=== PATIENT | female | born 1990 | race Caucasian/White ===

== ENCOUNTER 2016-11-14 16:35 | Emergency (ER) | payer OTHER, MEDICAID ==
[~2016-11-14] VITALS: Ht 154.9 cm; Wt 52.0 kg
[~2016-11-14 16:35] MED LIST: CYCL1PAK PO; ENDO5TAB6 PO; INDO50CA PO; PERC5TAB12 PO; PROM25TA5 PO; ZOFR4TAB3 SL
[2016-11-14 16:37] VITALS: BP 134/86; PULSE 88; RESP 20; TEMP 98.6; O2SAT 100
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
[2016-11-14 20:22] VITALS: PULSE 69; RESP 22; O2SAT 100
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
== END 2016-11-14 21:09 | disposition home or self-care (01) ==
LOC: NEPD 16:35
DX: O9A.211 Injury, poisoning and certain other consequences of external causes complicating pregnancy, first trimester (principal); S16.1XXA Strain of muscle, fascia and tendon at neck level, initial encounter; S60.312A Abrasion of left thumb, initial encounter; O26.891 Other specified pregnancy related conditions, first trimester; R51 Headache; Z3A.12 12 weeks gestation of pregnancy; V43.52XA Car driver injured in collision with other type car in traffic accident, initial encounter
CPT/HCPCS: 99282

== ENCOUNTER 2016-12-22 16:29 | Emergency (ER) | payer BC, OTHER ==
--- NOTE | 2016-12-22 18:20 | PD ---
HPI Chief Complaint Abdominal pain Date Seen: Dec 22, 2016 Time Seen: 18:15 Travel History International Travel<30 Days: No Contact w/Intl Traveler<30Days: No Known Affected Area: No History of Present Illness HPI 26-year-old who is at 17-18 weeks gestation comes in complaining of abdominal pain. She describes the pain as being sharp in character that started at 3 PM and lasted until about 4 PM. The pain resolved and now she feels just a dull achy sensation in her lower pelvis. She denies nausea vomiting fever or vaginal bleeding. Patient states that it feels better when she lies down but rates the pain as being very minimal male. She denies any complications. Patient has had a previous section and she is planning on a repeat due to hip complications necessitating major surgery. Para: 1 : 2 History Past Medical History Narrative Medical Polio ITP previous Left hip surgery Obstetric History Obstetric History section Family History Family History: Negative Social History Alcohol Use: No Tobacco Use: No Substance Abuse: No Allergies-Medications (Allergen,Severity, Reaction): Coded Allergies: codeine (Unverified Allergy, Severe, 12/20/16) Home Meds Active Scripts Oxycodone-Acetaminophen 5-325 mg (Percocet 5-325 mg)Oxycodone 5/325 Acetaminophen Tab1 Tab PO Q6H PRN (PAIN) #20 TAB Prov:Rolo Little MD 03/23/15 Ondansetron (Zofran ODT)4 Mg Tab4 Mg SL TID #10 TAB FOR NAUSEA/VOMITING Prov:Rolo Little MD 03/23/15 Reported Medications Oxycodone W/ Acetaminophen (Endocet)5 Mg/325 Mg Tab1 Tab PO Q6H PRN (PAIN) 03/23/15 Wrjoaohtyjnfvtu-Mejpdwngc-Mwxe (Cyclobenzaprinepax 10 & 0.0375-5 mg & %)10 Mg Tab5 Mg PO BID 03/23/15 Promethazine 25 mg (Phenergan 25 mg)25 Mg Tab25 Mg PO 03/23/15 Indomethacin 50 Mg Cap50 Mg PO 03/23/15 Review of Systems Except as stated in HPI: all other systems reviewed are Neg Physical Exam Narrative GENERAL: Well-nourished, well-developed patient. SKIN: Warm and dry. HEAD: Normocephalic and atraumatic. EYES: No scleral icterus. No injection or drainage. ENT: No nasal drainage noted. Mucous membranes pink. Airway patent. NECK: Supple, trachea midline. No JVD. CARDIOVASCULAR: Regular rate and rhythm without murmurs, gallops, or rubs. RESPIRATORY: Breath sounds equal bilaterally. No accessory muscle use. BREASTS: Bilateral exam showed no masses , no retractions, no nipple discharge. ABDOMEN/GI: Abdomen soft, non-tender, bowel sounds present, no rebound, no guarding Gravid to [-16] weeks size Fundal Height: [-] GENITOURINARY: External Genitalia: intact and normal in appearance BUS glands: [-Normal] Cervix: [Posterior-] Dilatation: [-Closed] Effacement: [-] Long Station: [-] High Presentation: [-] Membranes: [intact or ruptured] intact Uterine Contractions: [-] FHT's: 152 Category: [-] Baseline: [-] Reactive: [-] Variability: [-] Decels: [-] EXTREMITIES: No cyanosis or edema. BACK: Nontender without obvious deformity. No CVA tenderness. NEUROLOGICAL: Awake and alert. Motor and sensory grossly within normal limits. Five out of 5 muscle strength in all muscle groups. Normal speech. Data Data Vital Signs Reviewed: Yes [facility] Medical Record Reviewed: Yes Plan 26-year-old at 17-18 weeks gestation with a history of abdominal pain earlier this afternoon now this is mostly resolved Abdominal exam is benign with no pain with palpation No signs of premature cervical dilation with a normal pelvic examination and no vaginal bleeding [employer] today with adequate hydration and follow-up to her emergency technician as scheduled Diagnosis Diagnosis: Primary Impression: 17 weeks gestation of Additional Impressions: Abdominal pain affecting , antepartum History of poliomyelitis Previous delivery affecting , antepartum Disposition: DISCHARGE HOME Lorena Chapman MD Dec 22, 2016 18:20
== END 2016-12-22 18:37 | disposition home or self-care (01) ==
LOC: HOBED 16:29
DX: O26.892 Other specified pregnancy related conditions, second trimester (principal); R10.9 Unspecified abdominal pain; Z3A.17 17 weeks gestation of pregnancy; Z79.899 Other long term (current) drug therapy
CPT/HCPCS: 99284

== ENCOUNTER 2017-05-21 07:46 | Inpatient (IN) | payer BC, MEDICAID, OTHER ==
[~2017-05-21] VITALS: Ht 154.9 cm; Wt 64.0 kg
[2017-05-21] VITALS (14 sets, daily range): BP systolic 101–118; BP diastolic 62–88; PULSE 51–154; RESP 18; TEMP 97.4–98.8; O2SAT 98–100
[2017-05-21] MEDS ORDERED: VALT1TAB PO (08:58)
[2017-05-21] MEDS ORDERED: FERRTAB2 PO (08:59)
[2017-05-21] MEDS ORDERED: prenatal vitamin PO (09:00)
[2017-05-21] MEDS ORDERED: LACTATED RINGER'S 1000 ML IV ONE (09:00)
[2017-05-21 09:06] LABS: AUTOMATED NEUTROPHIL # 6.9 TH/MM3 (1.8-7.7); BASOPHIL % 0.4 % (0.0-2.0); EOSINOPHIL # 0.1 TH/MM3 (0-0.4); EOSINOPHIL % 0.6 % (0.0-4.0); HEMATOCRIT 33.7 % (35.0-46.0); HEMOGLOBIN 10.8 GM/DL (11.6-15.3); LYMPH % 33.2 % (9.0-44.0); LYMPHOCYTE # 3.7 TH/MM3 (1.0-4.8); MEAN CELL VOLUME 76.1 FL (80.0-100.0); MEAN CORPUSCULAR HEMOGLOBIN 24.5 PG (27.0-34.0); MEAN CORPUSCULAR HGB CONC 32.2 % (32.0-36.0); MEAN PLATELET VOLUME 9.4 FL (7.0-11.0); MONO % 3.4 % (0.0-8.0); MONOCYTE # 0.4 TH/MM3 (0-0.9); NEUT % 62.4 % (16.0-70.0); PLATELET COUNT 182 TH/MM3 (150-450); RED BLOOD COUNT 4.43 MIL/MM3 (4.00-5.30); RED CELL DISTRIBUTION WIDTH 15.6 % (11.6-17.2); WHITE BLOOD COUNT 11.1 TH/MM3 (4.0-11.0)
[2017-05-21 09:07] LABS: BILIRUBIN, URINE NEG (NEG); BLOOD, URINE NEG (NEG); GLUCOSE,URINE NEG (NEG); KETONE, URINE NEG (NEG); MUCUS URINE FEW /lpf (OCC); NITRITE,URINE NEG (NEG); SQUAMOUS EPITHELIAL CELL URINE 2 /hpf (0-5); URINE COLOR YELLOW (YELLW/STRAW); URINE LEUKOCYTE ESTERASE NEG (NEG)
[2017-05-21] MEDS ORDERED: CITRIC ACID-SODIUM CITRATE LIQ 30 ML UDC PO SCH (09:15)
[2017-05-21] MEDS ORDERED: ceFAZolin 1,000 MG/NS 100 ML IV SCH ×2 (09:15)
[2017-05-21] MEDS ORDERED: ALPRAZolam 0.25 MG TAB PO ONE (09:15)
[2017-05-21] MEDS ORDERED: LACTATED RINGER'S 1000 ML IV SCH (09:30)
[2017-05-21] MEDS ORDERED: MORPHINE SULFATE PF 5 MG/10 ML VIAL ONE (09:47)
[2017-05-21] MEDS ORDERED: EPIDURAL-NO SYSTEMIC NARCOTICS PRN (09:55)
[2017-05-21] MEDS ORDERED: EPIDURAL-NALOXONE HCL 0.4 MG/ML AMP IV PUSH PRN (09:55)
[2017-05-21] MEDS ORDERED: EPIDURAL-DIPHENHYDRAMINE HCL 50 MG CAP PO PRN (09:55)
[2017-05-21] MEDS ORDERED: EPIDURAL-DO NOT ADMINISTER ANTICOAGULANTS PRN (09:55)
[2017-05-21] MEDS ORDERED: ZOLPIDEM TARTRATE 5 MG TAB PO PRN (11:00)
[2017-05-21] MEDS ORDERED: MEASLES, MUMPS, RUBELLA VACCINE 0.5 ML VIAL SQ ONE (11:00)
[2017-05-21] MEDS ORDERED: KETOROLAC TROMETHAMINE 30 MG/ML (IVP) VIAL IV PUSH PRN (11:00)
[2017-05-21] MEDS ORDERED: OXYTOCIN 30 UNITS-500ML PREMIX 500 ML IV ONE (11:00)
[2017-05-21] MEDS ORDERED: ONDANSETRON HCL 4 MG/2 ML VIAL IVP PRN (11:00)
[2017-05-21] MEDS ORDERED: OXYTOCIN 30 UNITS-500ML PREMIX 500 ML ONE (11:18)
--- NOTE | 2017-05-21 11:21 | MH ---
cc: DANIEL NEWTON DATE OF ADMISSION: 05/21/2017 ADMISSION DIAGNOSIS 1. Term . 2. Previous . 3. Hip deformity related to polio age 11-months. HISTORY OF PRESENT ILLNESS The patient is a 26-year-old white female, para 1-0-0-1, LMP of 08/21/2016, EDC of 05/28/2017 by dates ultrasound. Her preop course was benign. She had polio at 11 months, produced a left hip deformity and has required surgical repair and she is not a candidate for vaginal delivery. She is therefore admitted for repeat section. PAST MEDICAL HISTORY PREVIOUS SURGERY Multiple ortho procedures on the left hip including the last repair in March of 2015. She had laser of kidney stone in the past. MEDICATIONS Current medications are vitamins. ALLERGIES None. TRANSFUSIONS None. OBSTETRICAL HISTORY One previous term delivery, . SOCIAL HISTORY She is , homemaker. Alcohol, tobacco and drugs are none. FAMILY HISTORY Noncontributory. PHYSICAL EXAMINATION This is a gravid white female, in no distress. HEENT: Exam is normal. CHEST: Her chest is clear. HEART: Regular rate. BREASTS: The breasts are symmetrical. ABDOMEN: Gravid. EFW 3000 grams. Cervix closed. EXTREMITIES: With the left hip correction. NEURO: Intact. ASSESSMENT As above. PLAN She is now admitted for repeat section. The procedure, the risks and benefits and ____ explained and accepted. MD JOSE J Art/MIGUELITO /10:51 AM /11:01 AM
[2017-05-21] MEDS ORDERED: ACETAMINOPHEN 1000 MG/100 ML 100 ML IV ONE (11:30)
[2017-05-21] MEDS: ACETAMINOPHEN 1000 MG/100 ML VIAL IV SCH ×2 (11:48→20:48)
[2017-05-21] MEDS ORDERED: ONDANSETRON HCL 4 MG/2 ML VIAL IV PUSH ONE (12:00)
[2017-05-21] MEDS ORDERED: KETOROLAC TROMETHAMINE 30 MG/ML (IVP) VIAL IV PUSH ONE (12:00)
[2017-05-21] MEDS ORDERED: PHENYLEPH/NS 1000 MCG/10 ML SYR IV ONE (12:00)
[2017-05-21] MEDS ORDERED: DEXAMETHASONE SOD PHOS 4 MG/ML VIAL IV ONE (12:00)
[2017-05-21] MEDS ORDERED: OXYTOCIN 10 UNIT/ML AMP IV ONE (12:00)
[2017-05-21] MEDS ORDERED: LACTATED RINGER'S 1000 ML INJ 1,000 ML IV SCH (13:04)
--- NOTE | 2017-05-21 15:05 | MP ---
cc: DANIEL NEWTON M.D. DATE OF SURGERY: 05/21/2017. PREOPERATIVE DIAGNOSIS: 1. Term 2. Previous 3. Left hip deformity secondary to a polio. POSTOPERATIVE DIAGNOSIS: 1. Term 2. Previous 3. Left hip deformity secondary to a polio. 4. Delivered. OPERATIVE PROCEDURE PERFORMED: Repeat low transverse section. SURGEON: Daniel Newton MD. DATABASE SPECIALIST: DWAYNE Cartwright. ANESTHESIA: Spinal. ESTIMATED BLOOD LOSS: 500 cc. FLUIDS: 1.8 liters of crystalloid. OBJECTIVE FINDINGS: Following induction of adequate spinal anesthesia, the patient was prepped and draped supine on the operating table in the left lateral tilt position in the usual sterile fashion with the bladder being drained via Jett catheterization. The abdomen was opened through a Pfannenstiel incision using a knife to cut down through skin to the fascia. The fascia was opened transversely and stripped the muscles. The rectus muscle was split in the midline and the peritoneum opened sharply without incident. the bladder flap was taken down sharply and retracted inferiorly with a [place] blade. The lower uterine segment was incised transversely with a knife and extended with blunt dissection with clear fluid. The baby was in the LOT position. The vacuum extractor was applied to the occiput and used to gently lift the head through the uterine abdominal wound. Mouth was suctioned, cord clamped and cut and the baby passed to the awaiting team, a viable vigorous male, Apgars were 9 and 9 and weight was 6 pounds 15 ounces. Cord blood was sent for typing. The uterine cavity was cleaned with laps. The uterus was exteriorized and closed in two layers with a running suture first with a running locking stitch of Vicryl and the second with a running imbricating stitch of Vicryl. Bleeding on the left side of the wound was controlled with [id number] stitches of #0 chromic and #0 Vicryl. On posterior inspection, uterus, tubes and ovaries were normal. The uterus was placed back in the abdominal cavity. Irrigation was performed. No bleeding was evident. The bladder flap was closed with a running stitch of 3#0 Vicryl. All lap structures were removed. Counts were correct. The anterior peritoneum was closed with a running stitch of 2-0 Vicryl, the fascia closed with a running locking stitch of #0 Vicryl corner to midline and tied. Subcutaneous closed with 3-0 Vicryl and the skin with a running subcuticular 3-0 Monocryl. Dermabond was applied. All counts were correct and the patient was awakened and taken to the recovery room in good condition. MD JOSE J Art/YESENIA /10:53 AM /2:50 PM MTDRene
[2017-05-21] MEDS ORDERED: OXYTOCIN 30 UNITS-500ML PREMIX 500 ML IV PRN (18:15)
[2017-05-21] MEDS: EPIDURAL-DIPHENHYDRAMINE HCL 50 MG/ML VIAL IV PUSH PRN (20:48)
[2017-05-22] VITALS (10 sets, daily range): BP systolic 100–117; BP diastolic 53–65; PULSE 51–70; RESP 6–20; TEMP 97.9–99.4
[2017-05-22] MEDS: ACETAMINOPHEN 1000 MG/100 ML VIAL IV SCH (04:01)
[2017-05-22] MEDS: SIMETHICONE 80 MG CHEWABLE TAB PO PRN ×2 (04:03→20:14)
[2017-05-22] MEDS: EPIDURAL-DIPHENHYDRAMINE HCL 50 MG/ML VIAL IV PUSH PRN (05:24)
[2017-05-22 05:54] LABS: AUTOMATED NEUTROPHIL # 15.5 TH/MM3 (1.8-7.7); BASOPHIL % 0.2 % (0.0-2.0); EOSINOPHIL % 0.1 % (0.0-4.0); HEMATOCRIT 26.8 % (35.0-46.0); HEMOGLOBIN 8.9 GM/DL (11.6-15.3); LYMPH % 19.1 % (9.0-44.0); LYMPHOCYTE # 3.9 TH/MM3 (1.0-4.8); MEAN CELL VOLUME 75.1 FL (80.0-100.0); MEAN CORPUSCULAR HGB CONC 33.3 % (32.0-36.0); MEAN PLATELET VOLUME 9.2 FL (7.0-11.0); MONO % 4.2 % (0.0-8.0); MONOCYTE # 0.8 TH/MM3 (0-0.9); NEUT % 76.4 % (16.0-70.0); PLATELET COUNT 154 TH/MM3 (150-450); RED BLOOD COUNT 3.57 MIL/MM3 (4.00-5.30); RED CELL DISTRIBUTION WIDTH 15.6 % (11.6-17.2); WHITE BLOOD COUNT 20.2 TH/MM3 (4.0-11.0)
[2017-05-22 06:25] LABS: BICARBONATE 24.5 MEQ/L (21.0-32.0); CREATININE 0.54 MG/DL (0.50-1.00)
[2017-05-22] MEDS: DOCUSATE SODIUM 50 MG/SENNA 8.6 MG TAB PO PRN (11:24)
[2017-05-22] MEDS: IBUPROFEN 600 MG TAB PO PRN ×2 (11:25→20:09)
[2017-05-22] MEDS: oxyCODONE/ACETAMINOPHEN 5 MG/325 MG TAB PO PRN ×3 (11:25→20:09)
[2017-05-23] MEDS: DOCUSATE SODIUM 50 MG/SENNA 8.6 MG TAB PO PRN (00:04)
[2017-05-23] MEDS: oxyCODONE/ACETAMINOPHEN 5 MG/325 MG TAB PO PRN ×3 (00:05→09:55)
[2017-05-23] MEDS: IBUPROFEN 600 MG TAB PO PRN ×2 (02:51→09:55)
[2017-05-23] MEDS ORDERED: OXYC1TAB63 PO (08:24)
--- NOTE | 2017-05-23 08:25 | HHI.DCPOC ---
Discharge Care Plan Report Symptoms to Your Doctor -Temperature above 100.5 degrees -Redness, of incision or excessive or foul smelling drainage -Unusual pain or calf pain -Increased vaginal bleeding -Painful or difficulty urinating -Feelings of extreme sadness or anxiety after 2 weeks Goals to Promote Your Health * To prevent worsening of your condition and complications * To maintain your health at the optimal level Directions to Meet Your Goals Take your medications as prescribed Follow your dietary instruction Follow activity as directed Ensure plenty of rest for recovery Drink fluids for hydration Keep your appointments as scheduled Take your immunizations and boosters as scheduled If your symptoms worsen call your PCP, if no PCP go to Urgent Care Center or Emergency Room Smoking is Dangerous to Your Health. Avoid second hand smoke Call the 24-hour crisis hotline for domestic abuse at Rayo Muir MD May 23, 2017 08:25
[2017-05-23 09:00] VITALS: BP 108/72; PULSE 74; RESP 16; TEMP 98
[2017-05-23] MEDS ORDERED: DIPHTH/TETANUS/ACEL PERTUSSIS (BOOSTER) 0.5 ML VIAL/PFS IM ONE (09:00)
[2017-05-23] MEDS: SIMETHICONE 80 MG CHEWABLE TAB PO PRN (09:54)
--- NOTE | 2017-05-24 07:15 | MD ---
cc: DANIEL NEWTON ADMISSION DATE: 05/21/2017 DISCHARGE DATE: 05/23/2017 ADMISSION DIAGNOSIS 1. Term 2. Previous 3. Left hip deformity DISCHARGE DIAGNOSIS 1. Term 2. Previous 3. Left hip deformity 4. Delivered PROCEDURE Repeat low transverse section on 05/21/2017. HISTORY OF PRESENT ILLNESS This is a 26-year-old white female para 1-0-0-1 with an LMP of 08/21/2016, EDC of 05/28/2017. The patient has a history of a left hip deformity related to polio at age 11 months. He has had multiple surgeries and is not a candidate for vaginal delivery. Her first delivery was by and she is now admitted for repeat section. She had delivery of viable vigorous male, 's 9 and 9, weight 6 pounds 15 ounces. did well, discharged home in excellent condition on 05/23/2017. She was advised NPV, light activity, no driving, return to see me in one week. She was carefully instructed in postop wound instruction care. She was given a prescription for Percocet 5 one to two p.o. q.4 h. prn/pain #16, take her vitamin with iron pills daily and [id number] Motrin as needed. MD JOSE J Art/SAUL /8:26 AM /7:06 AM
== END 2017-05-23 11:04 | disposition home or self-care (01) | DRG 766 ==
LOC: H2EB 07:46 → H1EA 12:17
PROVIDERS: ADMIT Obstetrics & Gynecology; ATTEND Obstetrics & Gynecology
PROC: 10D00Z1 Extraction of Products of Conception, Low, Open Approach (ICD-10-PCS; principal; 2017-05-21)
DX: O34.211 Maternal care for low transverse scar from previous cesarean delivery (principal); Z86.12 Personal history of poliomyelitis; Z37.0 Single live birth; Z3A.40 40 weeks gestation of pregnancy
CPT/HCPCS: 59025; 80048; 80307; 81001; 85025; 86850; 86900; 86901; 90715; J0131; J0690; J1100; J1200; J1885; J2274; J2370; J2405; J2590; J7120